=== PATIENT | female | born 1970 | race African-American/Black ===

== ENCOUNTER 2018-04-28 12:20 | Inpatient (IN) | payer SELFPAY ==
[~2018-04-28 12:20] MED LIST: ISOVUE-370 76%-LOCM 1 ML ONE; Iopamidol 370 76% 50 ML VIAL FS ONE
[2018-04-28 13:45] LABS: Bilirubin Negative (Negative); Blood, Urine Negative (Negative); Clarity CLOUDY (Clear); Glucose, Urine (Dipstick) Negative (Negative); Leukocyte Trace (Negative); Nitrite Negative (Negative); Protein, Urine (Dipstick) Negative (Neg-Trace); Specific Gravity, Urine 1.013 (1.002-1.036); pH, Urine 5.5 (5.0-9.0)
[2018-04-28 13:47] LABS: Bacteria/HPF 2+ HPF (None Seen); Hyaline Casts/LPF 4-6 HYALINE CAST LPF (0-3 Hyaline); Pregnancy Test - Urine (BHCG) Negative (Negative); Pregu Control Background? CLEAR/WHITE (CLR/WHITE); Pregu Control Bar Appear? YES (CONTROL BAR); RBC/HPF 0-3 HPF (0-3); Specific Gravity 1.013 (1.002-1.036); Squamous Epithelial 21-50 HPF (0-3)
[2018-04-28] MEDS ORDERED: Acetaminophen 325 MG TAB ONE (14:38)
[2018-04-28 14:58] LABS: #Eosinphils 0.1 thou/uL (0.0-0.7); #Lymphocytes 2.6 thou/uL (1.20-3.40); #Monocytes 0.6 thou/uL (0.11-0.59); %Basophils 0.7 % (0.0-1.0); %Eosinophils 2.2 % (0.0-10.0); %Lymphocytes 41.1 % (21.0-51.0); %Monocytes 9.1 % (0.0-10.0); %Neutrophils 46.9 % (42.0-75.0); Hemoglobin 10.2 g/dL (12.0-16.0); Mean Corpuscular HGB CONC 30.3 g/dL (32.0-36.0); Mean Corpuscular Hemoglobin 23.1 pg (27.0-31.0); Mean Corpuscular Volume 76.1 fl (81.0-99.0); Mean Platelet Volume 7.3 fL (7.4-10.4); Platelet Count 215 thou/uL (130-400); RBC Distribution Width 16.9 % (11.5-14.5); Red Blood Cell (RBC) Count 4.41 mill/uL (4.20-5.40); White Blood Cell (WBC) Count 6.4 thou/uL (4.8-10.8)
[2018-04-28 15:22] LABS: ALT (SGPT) 14 U/L (8-55); AST (SGOT) 26 U/L (5-34); Albumin 3.6 g/dL (3.5-5.0); Alkaline Phosphatase 83 U/L (40-150); Anion Gap 11 mmol/L (10-20); BUN (Urea Nitrogen) 4 mg/dL (7.0-18.7); Bilirubin, Total 0.6 mg/dL (0.2-1.2); Calc. Creatinine Clearance 0 mL/min (70-130); Calcium 9.3 mg/dL (7.8-10.44); Carbon Dioxide 24 mmol/L (22-29); Chloride 105 mmol/L (98-107); Estimated GFR-MDRD Greater than 90; Globulin 3.7 g/dL (2.4-3.5); Glucose 108 mg/dL (70-105); Potassium 3.8 mmol/L (3.5-5.1); Protein, Total 7.3 g/dL (6.0-8.3); Sodium 136 mmol/L (136-145)
--- NOTE | 2018-04-28 18:49 | CT ---
CT ABDOMEN AND PELVIS WITH IV CONTRAST: 04/28/18 Multiple axial tomograms obtained through the abdomen and pelvis with IV enhancement. Oral contrast w as also administered. INDICATIONS: Abdominal pain. There are no comparison exams available. FINDINGS: The lung bases are clear. Liver, spleen, and pancreas unremarkable. Stomach and duodenum unremarkable. Adrenal glands normal. Kidneys unremarkable. No hydronephrosis or urinary calculus. There is an anterior abdominal wall hernia just to the right of midline in the mid abdomen. This appe ars to be superior to the umbilicus. This abdominal wall defect measures up to 4 cm width. Small vu l loops herniate through this defect into the subcutaneous tissues. there is mural thickening of the small bowel within this hernia sac and there is mild distention of small bowel leading into the herni a sac suggesting low grade obstruction. The colon is opacified and unremarkable. Images through the pelvis reveal an enlarged heterogeneous uterus. Endometrium appears prominent. There is a large cystic mass in the right pelvis measuring up to 8 cm greatest dimension in the axial plane. In front of this large cystic mass is a cystic tubular structure which may represent hydrosal pinx. This tubular structure measures 1.5 cm. Ovarian tissue is not definitely identified in the righ t adnexa. A small 3 mm calcification in the right adnexa seen along the superior border of this large cystic mass and there is some soft tissue density at this location which may represent ovarian tissu e. In the left adnexa, there is a smaller cyst which appears to be ovarian measuring up to 2 cm. No free fluid identified. IMPRESSION: An anterior abdominal wall hernia to the right of midline in the mid abdomen. No free fluid identifie d. IMPRESSION: 1. An anterior abdominal wall hernia to the right of midline in the mid abdomen. Small bowel lo ops hernia through this defect. The small bowel loops demonstrate wall thickening and there is mild s mall bowel distention of the loops leading into this defect suggesting low grade obstruction. I canno t exclude some ischemic change within the herniated loops given the mural thickening noted. 2. A large cystic mass in the right pelvis measuring up to 8 cm. There is a cystic tubular struc ture suggesting hydrosalpinx. 3. An enlarged heterogeneous uterus with prominent endometrium. This may represent a fibroid quechan kraine although a defined fibroid is not identified. 4. A 2 cm cyst in the left adnexa appears to be ovarian. POS: [facility]
[2018-04-28] MEDS ORDERED: CEFAZOLIN/Water 2 GM/20 ML SYRINGE SLOW IVP SCH (19:19)
[2018-04-28] MEDS ORDERED: Acetaminophen 325 MG TAB PO PRN ×2 (19:42)
[2018-04-28] MEDS: D5 1/2 NS w/20 mEq KCL 1,000 ML IV SCH (20:48)
[2018-04-28] MEDS: Pantoprazole 40 MG VIAL IVP SCH (20:49)
[2018-04-28 23:11] VITALS: BMI 27.4
[2018-04-29] MEDS: Acetaminophen 1,000 MG in Premix Bag 1 BAG IVPB PRN ×2 (02:42→08:41)
--- NOTE | 2018-04-29 03:49 | HP ---
CHIEF COMPLAINT: Abdominal pain. HISTORY OF PRESENT ILLNESS: Ms. Hutchins is a 47-year-old woman who presented to the emergency room w ith severe abdominal pain in the right upper quadrant at the site of a hernia. She states that she h as noticed increasing asymmetry in that area for the past 2 months, but that starting last night, it began to become painful for her. This increased in intensity until she came to the emergency room. The ER doctor diagnosed a hernia, which he was able to reduce with some difficulty, but then after he reduced that the pain came back and repeat CT showed that there was still intestine within the herni a sac. There is no evidence of obstruction or strangulation and the patient does have persistent dis comfort in that area, however. She denies any nausea or vomiting and has not had any fevers or chill s. PAST MEDICAL HISTORY: Peptic ulcer disease. PAST SURGICAL HISTORY: Ulcer surgery of some sort at the [facility] a few years ago and a 27 year s ago. ALLERGIES: No known allergies. MEDICATIONS: No medications. FAMILY HISTORY: Noncontributory. PHYSICAL EXAMINATION: VITAL SIGNS: Patient is afebrile. She is not tachycardic or hypoxic. Blood pressure is mildly elev ated. O2 sats are normal. GENERAL: Reveals a healthy appearing woman in no acute distress, conversing without discomfort. HEENT: Unremarkable. NECK: Supple without lymphadenopathy or thyroid nodules. HEART: Regular in its rate and rhythm without murmurs, rubs, or gallops. LUNGS: Clear to auscultation bilaterally with good air entry. ABDOMEN: Soft and nondistended. She does have a palpable tender hernia to the right of midline in t he upper abdomen. This is reducible through a moderate sized fascial hernia, but recurs immediately after reduction. No other palpable hernias. No tenderness except at the hernia site. Bowel sounds are present. EXTREMITIES: Warm and well perfused without edema. NEUROLOGIC: No focal deficits. PSYCHIATRIC: Alert, oriented, and appropriate. LABORATORY AND X-RAY FINDINGS: Labs are unremarkable. White count is normal. LFTs are normal. Hem atocrit is slightly low at 33. Electrolytes are unremarkable. UA is contaminated, but unremarkable and test is negative. CT images are reviewed and I agree with the written report. The pat ient has a ventral hernia containing a small bowel loop, contrast does pass beyond this point an into the colon, although there is some difference in caliber and some mild mural thickening of the bowel within the hernia sac. She was also noted to have an adnexal cystic mass as well as a dilated tubula r structure which may represent hydrosalpinx. ASSESSMENT AND PLAN: Ventral hernia containing small intestine reducible, but rapidly recurs and sym ptomatic. This is at risk for incarceration and obstruction and I have recommended admission and rep air in the morning. The patient is in agreement with this plan and was most likely be done laparosco pically with mesh, although if the bowel is unable to be safely reduced at the time of surgery, open repair may be necessary. Inherent risks include but are not limited to bleeding, infection, risks of anesthesia, need for open surgery, damage to nearby structures including intestine and blood vessels , mesh infection requiring mesh explantation and hernia recurrence. She understands and accepts thes e risks and wishes to proceed. She has a cystic adnexal mass as well as a tubular structure which ma y represent hydrosalpinx, so we will ask one of our OB hospitalists to review her case as well and po ssibly resect the cystic mass at the time of her surgery.
[2018-04-29] MEDS: D5 1/2 NS w/20 mEq KCL 1,000 ML IV SCH ×3 (06:05→21:50)
[2018-04-29] MEDS: Pantoprazole 40 MG VIAL IVP SCH ×2 (08:41→20:21)
[2018-04-29] MEDS ORDERED: CEFAZOLIN/Water 2 GM/20 ML SYRINGE ONE (09:55)
--- NOTE | 2018-04-29 09:57 | CON ---
DATE OF CONSULTATION: 04/29/2018 ADMITTING PHYSICIAN: Dr. Tea Graham CONSULTING PHYSICIAN: Cristian Pate M.D. REASON FOR CONSULTATION: Adnexal mass. HISTORY OF PRESENT ILLNESS: Ms. Hutchins is a 47-year-old black female G4, P 4-0 -0-3 with a last menstrual period 2 weeks ago who presented to the ER complaining of right upper quadrant pain. She was found to have a hernia in her right upper quadrant that Dr. Graham will be taking her to the OR for this morning. At the time of her evaluation, she also on CT was found to have an 8 cm cystic mass, most consistent with a hydrosalpinx. The patient states that her last Pap smear was normal 3 years ago. PAST GENERAL ASSIGNMENT REPORTER HISTORY: She states that she has had 4 children, 3 are living. She has also had a many years ago. PAST MEDICAL HISTORY: Peptic ulcer disease. PAST SURGICAL HISTORY: 27 years ago as well as surgery for peptic ulcers at [facility] just a few years ago. CURRENT MEDICATIONS: None. ALLERGIES: No known allergies. SOCIAL HISTORY: Unremarkable. FAMILY HISTORY: Denies pelvic malignancy. PHYSICAL EXAMINATION: VITAL SIGNS: Stable and she is afebrile. ABDOMEN: Soft. There is an area consistent with a ventral hernia just to the right of her upper midline incision. PELVIC: Deferred. There is no vaginal bleeding. IMAGING: CT scan on admission showed an 8 cm cystic mass most consistent with a hydrosalpinx. There was also findings c/w a fibroid uterus. There was also a smaller ovarian cyst also seen. ASSESSMENT: 1. Incarcerated ventral hernia, Dr. Graham will be taking her to the OR this morning. 2. Adnexal mass, possibly consistent with hydrosalpinx. PLAN: Dr. Graham has asked me to join her for surgery to evaluate the mass. She has just now been called to the Preop area. At that time, consideration will be made of removal. Consent has been obtained from the patient and she understands the risks and benefits of removing this cystic mass. [facility]US[facility]risty
[2018-04-29] MEDS ORDERED: Fentanyl 100 MCG/2 ML VIAL ONE ×2 (12:43→16:14)
[2018-04-29] MEDS ORDERED: HYDROmorphone 0.5 MG/0.5 ML SYRINGE ONE ×2 (12:43→15:09)
[2018-04-29] MEDS ORDERED: Bupivacaine/Epinephrine 0.25% 30 ML VIAL ONE (12:47)
[2018-04-29] MEDS ORDERED: Labetalol 100 MG/20 ML MDV ONE (15:39)
[2018-04-29] MEDS ORDERED: PROPOFOL 200 MG/20 ML VIAL ONE (15:39)
[2018-04-29] MEDS ORDERED: Ondansetron HCl/PF 4 MG/2 ML Vial ONE (15:39)
[2018-04-29] MEDS ORDERED: Ketorolac Tromethamine 30 MG/ML VIAL ONE (15:39)
[2018-04-29] MEDS ORDERED: Glycopyrrolate 0.2 MG/ML 5 ML SYRINGE ONE (15:39)
[2018-04-29] MEDS ORDERED: Lidocaine 1% PF 5 ML VIAL ONE (15:39)
[2018-04-29] MEDS ORDERED: Promethazine HCl 25 MG/ML VIAL IM PRN (16:07)
[2018-04-29] MEDS ORDERED: Promethazine HCl 25 MG/ML VIAL SLOW IVP PRN (16:07)
[2018-04-29] MEDS ORDERED: Ondansetron HCl/PF 4 MG/2 ML Vial IVP PRN (16:07)
[2018-04-29] MEDS ORDERED: HYDROmorphone 2 MG/ML VIAL SLOW IVP PRN (16:07)
[2018-04-29] MEDS ORDERED: HYDROcodone/Acetaminophen 7.5/325 mg Tablet PO PRN (16:25)
[2018-04-29] MEDS ORDERED: Ondansetron HCl/PF 4 MG/2 ML Vial SLOW IVP PRN (16:26)
[2018-04-29] MEDS ORDERED: traMADol HCl 50 MG TAB PO PRN ×2 (16:27)
--- NOTE | 2018-04-29 18:31 | PDOC.OP ---
Operative Note - Operative Note Operative Note: PROCEDURE: Laparoscopic ventral hernia repair with mesh DATE OF PROCEDURE: 04/29/2018 SURGEON: Tea Graham M.D. PREOPERATIVE DIAGNOSES: Ventral hernia POSTOPERATIVE DIAGNOSIS: Ventral hernia HISTORY: Patient is a 47-year-old woman with a several month history of abdominal wall bulging and a one day history of pain at the site of the bulging. She was found to have a reducible ventral hernia which contained bowel. The bowel wall was slightly thickened there is a slight change in caliber although there is not a right obstruction at the level of the hernia. Recommendation was made to proceed to the operating room urgently for a laparoscopic ventral hernia repair with mesh. In addition the patient was found to have a likely hydrosalpinx and bilateral right greater than left ovarian cysts. The OB hospitalist recommended examination laparoscopically and possible resection. PROCEDURE IN DETAIL: After informed consent was obtained and appropriate preoperative antibiotics were administered the patient was taken to the operating she was placed in supine position and general endotracheal anesthesia was administered. She was prepped and draped in standard sterile fashion and local anesthesia infused to the skin and subcutaneous tissues at the left subcostal location. A skin incision was made, the fascia was elevated, and a Veress needle advanced into the abdominal cavity without difficulty. Opening pressure was less than 5 and carbon dioxide gas easily insufflated to an intra- abdominal pressure of 15 which the patient tolerated well. There is needle was withdrawn and a 5 mm Guin port advanced under direct laparoscopic vision into the abdominal cavity which was carefully examined. There were no adhesions at the level of the trocar and there was no evidence of Veress needle or of trocar injury, but there were dense bowel adhesions to the anterior abdominal wall at the midline and into the right abdomen. Additional dissecting trochars were placed in the left lateral and left lower quadrants under direct view of the laparoscope and the adhesions were carefully taken down through the avascular plane until he area of the hernias was approached. The hernias were reduced and the adhesions between the bowel and the hernia sac were carefully taken down through the avascular plane. The patient was found to have multiple abdominal hernias, with bowel present in the 2 largest. The bowel was densely adherent near the edge of the hernias, causing him to immediately recur after reduction. Once these adhesions were taken down the bowel was able to be successfully and permanently reduced. The bowel was carefully examined and no evidence of injury found. The abdominal wall was then cleared circumferentially around the 2 largest hernias and multiple smaller hernias encountered. These mostly held fatty tissue from omentum although bowel adhesions were encountered in a few places. Once the anterior abdominal wall was cleared and an adequate rim of normal fascia exposed for mesh placement, attention was turned to the patient's pelvis, which was carefully examined laparoscopically with the OB hospitalist. The left adnexal cyst was identified and had a non-concerning appearance. The patient was noted to have undergone a tubal ligation in the past. Her uterus appeared to be enlarged and irregular consistent with fibroids. The patient had dense adhesions between her uterus and small intestine and the small intestine was also adherent to the bladder and lateral sidewall in the pelvis making exposure of the right adnexa problematic. The few adhesions were taken down but the bowel was very densely adherent and it was felt that the risks of trying to reduce these adhesions was greater than the possible benefit. It was felt that if she did require oophorectomy her hysterectomy that this would likely need to be done in an open manner due to the dense adhesions. Therefore cystectomy or salpingectomy was not attempted. Attention was then turned back to completion of the hernia repair. The area of the multiple abdominal hernias was identified and marked on the anterior abdominal wall. The abdomen was desufflated and the area was found to cover a 9 x 14 cm area. A 17 x 23 cm ventral ex mesh was obtained and marked with the smooth side labeled "bowel". Ethibond sutures were placed at the superior inferior and lateral margins of the mesh and the anticipated location of the transfascial sutures on the skin was marked. The mesh was dunked and saline rolled and placed into the abdominal cavity. For this purpose a 12 mm port was placed under direct laparoscopic vision in the right lower quadrant. The mesh was then unrolled with the adherent uncoated side facing upward toward the abdominal fascia, and the smooth coated labeled side facing downward toward the bowel. The transfascial sutures were secured using a GraNee needle and the mesh was tacked in place circumferentially with secure strap device. This provided excellent coverage of the entire right upper quadrant abdominal wall extending beyond the edge of the hernias in at least 3 cm in all directions. The 12 mm trocar was then removed and the fascial defect closed with 0 Vicryl suture under direct vision using a GraNee needle. The left subcostal left lateral trochars removed and hemostasis verified. Peridex the gas allowed to desufflate through the left lower quadrant trocar which was then removed. The skin incisions were closed with 4-0 subcuticular Monocryl suture and Dermabond dressings were placed. Estimated blood loss is minimal. There locations. There were no specimens.
--- NOTE | 2018-04-29 19:43 | CON ---
DATE OF CONSULTATION: 04/29/2018 ATTENDING PHYSICIAN: Tea Graham M.D. CONSULTING PHYSICIAN: Cristian Pate M.D. INTRAOPERATIVE FINDINGS: I was asked to evaluate Ms. Hutchins's pelvis during Dr. Graham's laparoscopy. Dr. Graham had laparoscopicly cleared a large number of adhesions from the anterior abdominal wall in the area of her incarcerated inguinal hernia. Once these had been taken down, Dr. Graham visualized the pelvis and it could be seen that there was no evidence of ascites or omental caking, but there was a wide band of omental and small bowel adhesions across the uterus and right adnexal area. As a result, the contents of the pelvis could not be completely evaluated. We did see the small cyst on the left side that appeared to be benign, but the entire right adnexa was obscured by dense adhesions. Decision was made not to lyse these adhesions and to evaluate her in the outpatient setting as this was not her presenting complaint upon this admission. Dr. Graham and I both agreed that this would be the best course at this time. I strongly recommend that if pelvic surgery is required at a later date, that she be opened rather than approached laparoscopically. VALERIO
[2018-04-29] MEDS: HYDROcodone/Acetaminophen 7.5/325 mg Tablet PO PRN (22:52)
[2018-04-30] MEDS: HYDROcodone/Acetaminophen 7.5/325 mg Tablet PO PRN ×6 (02:54→22:53)
[2018-04-30] MEDS: D5 1/2 NS w/20 mEq KCL 1,000 ML IV SCH ×3 (05:32→22:54)
[2018-04-30] MEDS: Pantoprazole 40 MG VIAL IVP SCH ×2 (09:02→20:59)
--- NOTE | 2018-04-30 12:21 | PRG ---
DATE OF SERVICE: 04/30/2018 ATTENDING PHYSICIAN: Dr. Yaw Borjas. SUBJECTIVE: Ms. Hutchins is a 47-year-old female who was admitted 2 days ago and underwent laparoscopic ventral hernia repair with mesh one day ago. She has been stable on the floor overnight. She reports her pain is well controlled. She has been up and ambulatory. She is not having bowel movement and reports passing small amount of flatus last p.m. postoperatively. She is currently on full liquid diet. OBJECTIVE: VITAL SIGNS: Temperature 97.7, pulse 72, respirations 16, O2 sat 94%, and blood pressure 157/81. GENERAL: Well-nourished, well-developed female lying in bed in no acute distress. HEENT: Atraumatic, normocephalic. PULMONARY: Bilateral breath sounds clear. No respiratory distress. CARDIOVASCULAR: Regular rate and rhythm. Heart sounds normal. ABDOMEN: Soft. Mild incisional tenderness. Laparoscopic surgical incisions with Dermabond. No evidence of infection. EXTREMITIES: Moves all extremities. Cap refill brisk. NEUROLOGIC: GCS 15. Awake, alert, oriented x3. ASSESSMENT: 1. A 47-year-old female postoperative day #1, status post laparoscopic ventral hernia repair. 2. Found to have 8 cm cystic mass on CT scan. DAM TENDER ASSISTANT consulted intraoperatively. 3. No return of bowel function. 4. Tolerating liquid diet. PLAN: 1. Continue full liquid diet. 2. Encourage ambulation. 3. Encourage oral analgesia with morphine for breakthrough. 4. Discontinue IV fluids when tolerating p.o. The patient was reviewed with Dr. Borjas, attending surgeon, who agreed with plan. [facility]ALTHK[facility]
[2018-04-30] MEDS ORDERED: Ketorolac Tromethamine 30 MG/ML VIAL IVP SCH (13:30)
[2018-04-30] MEDS: Senokot S 8.6-50 MG TAB PO SCH (20:59)
[2018-05-01] MEDS: HYDROcodone/Acetaminophen 7.5/325 mg Tablet PO PRN ×3 (02:53→11:09)
[2018-05-01] MEDS: D5 1/2 NS w/20 mEq KCL 1,000 ML IV SCH (05:47)
[2018-05-01] MEDS: Senokot S 8.6-50 MG TAB PO SCH (08:18)
[2018-05-01] MEDS: Pantoprazole 40 MG VIAL IVP SCH (08:18)
[2018-05-01 09:20] VITALS: BP 162/88
[2018-05-01 09:29] VITALS: TEMP 98.2
--- NOTE | 2018-05-01 16:51 | DIS ---
DATE OF ADMISSION: 04/28/2018 DATE OF DISCHARGE: 05/01/2018 ADMITTING PHYSICIAN: Dr. Tea Graham. DISCHARGING PHYSICIAN: Dr. Yaw Borjas. REASON FOR HOSPITALIZATION: Abdominal pain with hernia. HOSPITAL DIAGNOSIS: Ventral hernia containing small intestine, reducible, but rapidly recurring and symptomatic. PROCEDURE: Laparoscopic ventral hernia repair with mesh. Date of procedure, . Surgeon, Dr. Tea Graham. DISCHARGE CONDITION: Good. DISPOSITION: Home. FOLLOWUP: 1. Dr. Graham in [address] Pate DISCHARGE MEDICATIONS: 1. Tramadol 50-100 mg every 4 hours as needed. 2. Hydrocodone 7.5/325 one tab every 4 hours as needed. 3. Phenergan 12.5 mg oral every 4 hours as needed. BRIEF HISTORY OF HOSPITALIZATION: Ms. Hutchins is a 47-year-old woman who presented to the emergency room with severe abdominal pain in the right upper quadrant at the site of the hernia. The ER doctor diagnosed a hernia which was able to be reduced with some difficulty. Dr. Graham was then consulted after the pain came back and repeat CT scan showed that there was still small intestine within the hernia sac. She was admitted to the hospital by Dr. Graham. She was then taken to the operating room for a laparoscopic repair of hernia. Dr. Cristian Pate, STOCKING AND BOX SHOP SUPERVISOR, was intraoperatively consulted due to bowel adhesions across the uterus and right adnexal area. Decision was made not to lyse these adhesions and to further evaluate her in the outpatient setting. Surgical was otherwise uneventful. Please refer to Dr. Graham's operative note for complete details. The patient was then returned to the surgical floor. She had adequate pain control with oral analgesia. She was ambulatory without assistance. On postoperative day #2, she was tolerating a regular diet. Bowel function had returned. Pain was well controlled. She was discharged home to follow up with Dr. Graham and Dr. Pate. The patient was seen and examined with Dr. Borjas who agrees with plan for discharge. [facility]risty
== END 2018-05-01 12:03 | disposition home or self-care (01) | DRG 337 ==
LOC: ERS 12:20 → SURG A 19:17
PROVIDERS: ADMIT Surgery; ATTEND Surgery
PROC: 0WUF4JZ Supplement Abdominal Wall with Synthetic Substitute, Percutaneous Endoscopic Approach (ICD-10-PCS; principal; 2018-04-29)
PROC: 0DNW4ZZ Release Peritoneum, Percutaneous Endoscopic Approach (ICD-10-PCS; 2018-04-29)
DX: K43.9 Ventral hernia without obstruction or gangrene (principal); K66.0 Peritoneal adhesions (postprocedural) (postinfection)
CPT/HCPCS: 36415; 74177; 80053; 81003; 81015; 81025; 85025; 93005; A4216; C9113; J0131; J1170; J1885; J2001; J2405; J2704; J3010

== ENCOUNTER 2019-02-12 01:22 | Emergency (ER) | payer BC, SELFPAY ==
[2019-02-12] MEDS ORDERED: Acetaminophen 500 MG TAB ONE (01:52)
[2019-02-12 02:04] LABS: Bilirubin Negative (Negative); Blood, Urine Negative (Negative); Clarity CLEAR (Clear); Glucose, Urine (Dipstick) Negative (Negative); Leukocyte Small (Negative); Nitrite Negative (Negative); Protein, Urine (Dipstick) Negative (Neg-Trace); Specific Gravity, Urine 1.003 (1.002-1.036); pH, Urine 6.5 (5.0-9.0)
[2019-02-12 02:07] LABS: Bacteria/HPF None Seen HPF (None Seen); Hyaline Casts/LPF 0-3 HYALINE CAST LPF (0-3 Hyaline); Pathc Cast-AUWi Flag 0.27 (0-2.49); RBC/HPF 0-3 HPF (0-3); Squamous Epithelial 0-3 HPF (0-3); WBC/HPF 0-3 HPF (0-3)
[2019-02-12] MEDS ORDERED: Lidocaine 1% w/Epinephrine 1:100K 20 ML VIAL ONE (03:17)
[2019-02-12 03:31] LABS: #Basophils 0.1 thou/uL (0.0-0.2); #Eosinphils 0.1 thou/uL (0.0-0.7); #Monocytes 1.2 thou/uL (0.11-0.59); #Neutrophils 8.3 thou/uL (1.40-6.50); %Basophils 0.7 % (0.0-1.0); %Eosinophils 0.7 % (0.0-10.0); %Lymphocytes 23.6 % (21.0-51.0); %Monocytes 9.4 % (0.0-10.0); %Neutrophils 65.6 % (42.0-75.0); Mean Corpuscular HGB CONC 32.2 g/dL (32.0-36.0); Mean Corpuscular Hemoglobin 27.1 pg (27.0-31.0); Mean Corpuscular Volume 84.1 fL (78.0-98.0); Mean Platelet Volume 7.7 fL (7.4-10.4); Platelet Count 178 thou/uL (130-400); RBC Distribution Width 15.7 % (11.5-14.5); Red Blood Cell (RBC) Count 4.45 mill/uL (4.20-5.40); White Blood Cell (WBC) Count 12.6 thou/uL (4.8-10.8)
[2019-02-12 03:51] LABS: Anion Gap 15 mmol/L (10-20); BUN (Urea Nitrogen) Less than 4 mg/dL (7.0-18.7); Calc. Creatinine Clearance 0 mL/min (70-130); Calcium 10.1 mg/dL (7.8-10.44); Carbon Dioxide 19 mmol/L (22-29); Chloride 102 mmol/L (98-107); Estimated GFR-MDRD Greater than 90; Glucose 91 mg/dL (70-105); Potassium 3.6 mmol/L (3.5-5.1); Sodium 132 mmol/L (136-145)
[2019-02-12] MEDS ORDERED: cefTRIAXone\\ROCEPHIN 250 MG VIAL ONE (03:52)
[2019-02-12] MEDS ORDERED: Azithromycin 250 MG TAB ONE (03:52)
[2019-02-12] MEDS ORDERED: Lidocaine 1% PF 5 ML VIAL ONE (03:52)
[2019-02-12] MEDS ORDERED: Adacel (T-DAP) 0.5 ML SYRINGE ONE (04:06)
== END 2019-02-12 04:29 | disposition home or self-care (01) ==
LOC: ERS 01:22
DX: N75.1 Abscess of Bartholin's gland (principal); R50.9 Fever, unspecified; Z79.891 Long term (current) use of opiate analgesic
CPT/HCPCS: 36415; 56420; 80048; 81003; 81015; 85025; 87804; 90471; 90715; 96372; J0696; J2001

== ENCOUNTER 2022-04-08 09:29 | Emergency (ER) | payer BC ==
[2022-04-08 10:23] LABS: #Eosinphils 0.1 thou/uL (0.0-0.7); #Lymphocytes 2.4 thou/uL (1.20-3.40); #Monocytes 0.5 thou/uL (0.11-0.59); #Neutrophils 3.1 thou/uL (1.40-6.50); %Basophils 0.5 % (0.0-1.0); %Lymphocytes 38.8 % (21.0-51.0); %Monocytes 7.6 % (0.0-10.0); %Neutrophils 51.1 % (42.0-75.0); Hemoglobin 14.9 g/dL (12.0-16.0); Mean Corpuscular HGB CONC 30.7 g/dL (32.0-36.0); Mean Corpuscular Hemoglobin 28.8 pg (27.0-31.0); Mean Platelet Volume 6.5 fL (7.4-10.4); Platelet Count 199 thou/uL (130-400); RBC Distribution Width 12.2 % (11.5-14.5); Red Blood Cell (RBC) Count 5.15 mill/uL (4.20-5.40); White Blood Cell (WBC) Count 6.1 thou/uL (4.8-10.8)
[2022-04-08 10:26] LABS: Bilirubin Negative (Negative); Blood, Urine Trace (Negative); Glucose, Urine (Dipstick) Negative (Negative); Ketone, Urine Negative (Negative); Leukocyte Moderate (Negative); Nitrite Negative (Negative); Protein, Urine (Dipstick) Negative (Neg-Trace); Urobilinogen 0.2 mg/dL (Less than 2)
[2022-04-08 10:30] LABS: Clarity Clear (Clear); Specific Gravity, Urine 1.017 (1.002-1.036)
[2022-04-08 10:37] LABS: RBC/HPF 0-3 HPF (0-3); Squamous Epithelial 0-3 HPF (0-3); WBC/HPF 0-3 HPF (0-3)
[2022-04-08 10:46] LABS: ALT (SGPT) 20 U/L (8-55); AST (SGOT) 29 U/L (5-34); Albumin 3.9 g/dL (3.5-5.0); Alkaline Phosphatase 90 U/L (40-110); Anion Gap 13 mmol/L (10-20); BUN (Urea Nitrogen) 7 mg/dL (9.8-20.1); Bilirubin, Total 0.6 mg/dL (0.2-1.2); Calc. Creatinine Clearance 0 mL/min (70-130); Calcium 9.6 mg/dL (7.8-10.44); Carbon Dioxide 24 mmol/L (22-29); Chloride 103 mmol/L (98-107); Globulin 3.5 g/dL (2.4-3.5); Glucose 94 mg/dL (70-105); Lipase 16 U/L (8-78); Potassium 4.3 mmol/L (3.5-5.1); Protein, Total 7.4 g/dL (6.0-8.3); Sodium 136 mmol/L (136-145)
[2022-04-08] MEDS ORDERED: Acetaminophen 500 MG TAB ONE (10:52)
== END 2022-04-08 11:50 | disposition home or self-care (01) ==
LOC: ERS 09:29
DX: R10.30 Lower abdominal pain, unspecified (principal); R10.816 Epigastric abdominal tenderness; R10.815 Periumbilic abdominal tenderness
CPT/HCPCS: 36415; 74177; 80053; 81003; 81015; 83605; 83690; 84484; 85025; 93005

== ENCOUNTER 2023-08-19 17:42 | Emergency (ER) | payer OTHER, SELFPAY ==
[~2023-08-19 17:42] MED LIST changes: -ISOVUE-370 76%-LOCM 1 ML ONE; -Iopamidol 370 76% 50 ML VIAL FS ONE; +Iopamidol-370 76% 500 ML MDV (1 ML CHARGE) ONE
[2023-08-19 18:17] LABS: #Basophils 0.1 thou/uL (0.0-0.2); #Eosinphils 0.4 thou/uL (0.0-0.7); #Monocytes 1.1 thou/uL (0.11-0.59); #Neutrophils 3.6 thou/uL (1.40-6.50); %Basophils 0.6 % (0.0-1.0); %Eosinophils 3.9 % (0.0-10.0); %Lymphocytes 44.6 % (21.0-51.0); %Monocytes 11.4 % (0.0-10.0); %Neutrophils 39.2 % (42.0-75.0); Hematocrit 43.4 % (36.0-47.0); Hemoglobin 14.1 g/dL (12.0-16.0); Mean Corpuscular HGB CONC 32.5 g/dL (32.0-36.0); Mean Corpuscular Hemoglobin 28.9 pg (27.0-31.0); Mean Corpuscular Volume 88.9 fl (78.0-98.0); Platelet Count 220 10x3/uL (130-400); RBC Distribution Width 13.4 % (11.5-14.5); Red Blood Cell (RBC) Count 4.88 mill/uL (4.20-5.40); White Blood Cell (WBC) Count 9.3 10x3/uL (4.8-10.8)
[2023-08-19 18:45] LABS: ALT (SGPT) 21 U/L (8-55); AST (SGOT) 24 U/L (5-34); Alkaline Phosphatase 91 U/L (40-110); Anion Gap 15 mmol/L (10-20); BUN (Urea Nitrogen) 8 mg/dL (9.8-20.1); Bilirubin, Total 0.3 mg/dL (0.2-1.2); Calc. Creatinine Clearance 0 mL/min (70-130); Calcium 10.3 mg/dL (7.8-10.44); Carbon Dioxide 23 mmol/L (22-29); Chloride 104 mmol/L (98-107); Estimated GFR 104; Globulin 3.7 g/dL (2.4-3.5); Glucose 99 mg/dL (70-105); Lipase 17 U/L (8-78); Potassium 3.9 mmol/L (3.5-5.1); Protein, Total 7.7 g/dL (6.0-8.3); Sodium 138 mmol/L (136-145)
[2023-08-19 18:55] LABS: Bacteria/HPF None Seen HPF (None Seen); Bilirubin Negative (Negative); Blood, Urine Negative (Negative); CAUTI Indications for Culture Pelvic or flank pain; Clarity Clear (Clear); Glucose, Urine (Dipstick) Normal (Negative); Ketone, Urine Negative (Negative); Leukocyte Negative Leu/uL (Negative); Nitrite Negative (Negative); Protein, Urine (Dipstick) 10 mg/dL (Neg-Trace); RBC/HPF 0-3 HPF (0-3); Specific Gravity, Urine 1.023 (1.002-1.036); Squamous Epithelial 0-3 HPF (0-3); Urobilinogen 3 mg/dL (Less than 2); WBC/HPF 0-3 HPF (0-3); pH, Urine 5.5 (5.0-9.0)
[2023-08-19 19:01] LABS: Urine Culture Reflex No No
== END 2023-08-19 20:08 | disposition home or self-care (01) ==
LOC: ERS 17:42
DX: R10.11 Right upper quadrant pain (principal)
CPT/HCPCS: 36415; 74177; 80053; 81001; 83690; 85025; Q9967

== ENCOUNTER 2025-07-26 14:24 | Outpatient (CLI) | payer OTHER | END 2025-07-26 14:25 | disposition home or self-care (01) | LOC: BICMAMMO 14:24 | PROVIDERS: ATTEND Nurse Practitioner Family | DX: Z12.31 Encounter for screening mammogram for malignant neoplasm of breast (principal); N64.89 Other specified disorders of breast | CPT/HCPCS: 77063; 77067 ==